=== PATIENT | male | born 1985 | race Asian ===

== ENCOUNTER 2017-01-10 06:05 | Emergency (ER) | payer OTHER ==
[~2017-01-10] VITALS: Ht 177.8 cm; Wt 86.2 kg
[2017-01-10 06:05] VITALS: BP_SYST 128
[2017-01-10] MEDS ORDERED: KETOROLAC TROMETHAMINE 30 MG VIAL IVP ONE (06:30)
[2017-01-10] MEDS ORDERED: NACL 0.9% 1,000 ML IV ONE (06:30)
[2017-01-10] MEDS ORDERED: ONDANSETRON HCL 4 MG/2 ML VIAL IVP ONE (06:30)
[2017-01-10 07:20] VITALS: BP_SYST 120
== END 2017-01-10 07:16 | disposition home or self-care (01) ==
LOC: SED 06:05
DX: A08.4 Viral intestinal infection, unspecified (principal); R03.0 Elevated blood-pressure reading, without diagnosis of hypertension
CPT/HCPCS: 96374; 96375; 99284; J1885; J2405; J7030